=== PATIENT | female | born 1955 | race Caucasian/White ===

== ENCOUNTER 2016-09-21 15:59 | Emergency (ER) | payer MEDICARE ==
[2015-04-25 13:13] VITALS: BMI 56.5
[~2016-09-21 15:59] MED LIST: CELEBREX200 MG PO; CRESTOR40 MG PO; DIOVAN40 MG PO; GLUCOPHAGE500 MG PO; K-PHOS ORIGINA500 MG PO; LEVAQUIN500 MG PO; PAMELOR10 MG PO; PERCOCET 10/3251 TA1 PO; SYNTHROID25 MCG PO
[2016-09-21 18:44] LABS: APPEARANCE CLEAR (CLEAR); BILIRUBIN NEGATIVE (NEGATIVE); COLOR YELLOW (YELLOW); GLUCOSE NEGATIVE (NEGATIVE); KETONE NEGATIVE (NEGATIVE); LEUKOCYTE ESTERASE NEGATIVE (NEGATIVE); NITRITE NEGATIVE (NEGATIVE); PROTEIN 1+ mg/dL (NEGATIVE); UROBILINOGEN NORMAL (NORMAL)
== END 2016-09-21 20:30 | disposition home or self-care (01) ==
LOC: D.ER 15:59
PROVIDERS: Emergency Medicine
DX: S39.012A Strain of muscle, fascia and tendon of lower back, initial encounter (principal); X58.XXXA Exposure to other specified factors, initial encounter; Y93.89 Activity, other specified; Y92.89 Other specified places as the place of occurrence of the external cause; E11.9 Type 2 diabetes mellitus without complications; I10 Essential (primary) hypertension; E66.9 Obesity, unspecified; F17.200 Nicotine dependence, unspecified, uncomplicated

== ENCOUNTER → 2016-11-10 09:47 | Outpatient (CLI) | payer MEDICARE ==
[2015-04-25 13:13] VITALS: BMI 56.5
== END | disposition home or self-care (01) ==
LOC: D.MAMMO 09:47
DX: Z12.31 Encounter for screening mammogram for malignant neoplasm of breast (principal)

== ENCOUNTER → 2016-12-14 18:00 | Outpatient (CLI) | payer MEDICARE ==
[2015-04-25 13:13] VITALS: BMI 56.5
[~2016-12-14 18:00] MED LIST changes: +AMPICILLIN TRI500 MG PO; +EXFORGE 5-160 M1 TAB PO
== END | disposition home or self-care (01) ==
LOC: D.MAMMO 11-29 15:00
DX: R92.8 Other abnormal and inconclusive findings on diagnostic imaging of breast (principal)

== ENCOUNTER 2017-01-01 23:45 | Inpatient (IN) | payer MEDICARE ==
[~2017-01-01 23:45] MED LIST changes: -AMPICILLIN TRI500 MG PO; -EXFORGE 5-160 M1 TAB PO
[2017-01-02 00:17] LABS: HEMATOCRIT 36.7 % (36.0-48.0); HEMOGLOBIN 11.8 g/dL (12-16); LYMPHOCYTES 15.9 % (15-50); MCH 28.9 pg (26.0-34.0); MCHC 32.2 g/dL (31.0-37.0); MCV 89.7 fL (80.0-100.0); MEAN PLATELET VOLUME 9.8 fL (7.4-10.4); NEUTROPHILS 79.7 % (40-80); RBC 4.09 10x6/uL (4.00-5.40); RDW 14.7 % (11.5-14.5); WBC 11.3 10x3/uL (4.8-10.8)
[2017-01-02 00:23] LABS: PLATELET COUNT 208 10x3/uL (130-400)
[2017-01-02 00:29] LABS: ALBUMIN 2.6 g/dL (3.4-5.0); ANION GAP 11.8 mmol/L (8-16); BILIRUBIN - TOTAL 0.3 mg/dL (0.2-1.3); CALCIUM 9.4 mg/dL (8.5-10.1); CARBON DIOXIDE 27.8 mmol/L (21.0-32.0); CREATININE - SERUM 1.2 mg/dL (0.6-1.3); POTASSIUM - SERUM 3.6 mmol/L (3.5-5.1); PROTEIN - SERUM 7.3 g/dL (6.4-8.2)
[2017-01-02 00:49] LABS: MAGNESIUM - SERUM 1.8 mg/dL (1.8-2.4)
--- NOTE | 2017-01-02 01:08 | NUR ---
RCVD REPORT FROM GINA IN THE ER. AWAITING PT ARRIVAL.
--- NOTE | 2017-01-02 01:14 | NUR ---
PT ARRIVED ON FLOOR BY PERSONAL POWER SCOOTER ASSISTED X1.
[2017-01-02 02:24] VITALS: BP 180/88; BMI 45.3
--- NOTE | 2017-01-02 02:57 | NUR ---
PTS BP ON ADMISSION WAS 190/88. WENT TO THE PT TO ASK HER WHAT HER NORMAL IS AND IF SHE TAKES HER BP PILL AT NIGHT. SHE STATED THAT WHEN THE BP WAS TAKEN EARLIER SHE WAS VERY NERVOUS AND THAT NORMALL SHE IS ABOUT 160/70. SHE STATED THAT SHE NEVER TAKES HER BP PILL AT NIGHT. PT STATED SHE WAS FEELING MUCH LESS NERVOUS NOW AND I RETOOK HER BP AND IT WAS 169/77. PT STATED THIS IS ABOUT NORMAL FOR HER. STATES THAT SHE WANTS TO TAKE HER BP PILL IN THE MORNING SHE USUALLY DOES. WILL CTM.
[2017-01-02 04:00] VITALS: BP 154/64
--- NOTE | 2017-01-02 04:04 | NUR ---
PT STATES THAT SHE USES A CPAP AT HOME. STATES THAT SHE DOESN'T WANT ONE TONIGHT AND THAT SHE WILL HAVE A FAMLIY MEMBER BRING HER OWN PERSONAL ONE FROM HOME TOMORROW. BREATHING EVEN AND UNLABORED.
--- NOTE | 2017-01-02 07:15 | NUR ---
RECEIVED REPORT. ASSUMED CARE OF PATIENT. PATIENT RESTING IN BED WITH EYES OPEN. RESP EVEN AND UNLABORED. CELLULITIS NOTED TO ENIRE RIGHT LEG AND LOWER LEFT LEG. INFORMED PATIENT OF THE NEED FOR URINE SAMPLE. CALL LIGHT WITHIN REACH. NO DISTRESS.
[2017-01-02 08:00] VITALS: BP 135/66
--- NOTE | 2017-01-02 08:51 | NUR ---
MEDICATED FOR PAIN AT THIS TIME. WAITING FOR PHARMACY TO BRING UNASYN TO FLOOR FOR ADMINISTRATION.
--- NOTE | 2017-01-02 09:23 | NUR ---
STILL AWAITING ANTIBIOTICS TO BE BROUGHT UP FROM PHARMACY.
[2017-01-02 11:02] LABS: APPEARANCE CLEAR (CLEAR); BILIRUBIN NEGATIVE (NEGATIVE); COLOR YELLOW (YELLOW); GLUCOSE NEGATIVE (NEGATIVE); KETONE NEGATIVE (NEGATIVE); NITRITE NEGATIVE (NEGATIVE); PROTEIN 3+ mg/dL (NEGATIVE); SPECIFIC GRAVITY 1.015 (1.005-1.020); UROBILINOGEN NORMAL (NORMAL)
[2017-01-02 11:03] LABS: BACTERIA FEW /hpf (NONE SEEN); EPITHELIAL CELLS 0-5 /hpf (0-5); RED CELLS - URINE 0-5 /hpf (0-5); WHITE CELLS - URINE 0-5 /hpf (0-5)
[2017-01-02 12:00] VITALS: BP 131/58
--- NOTE | 2017-01-02 15:27 | NUR ---
20 GAUGE IV REMOVED FROM RIGHT AC IV WAS INFILTRATED. CATHETER TIP INTACT. NO BLEEDING FROM STIE. 2X2 applied and SECURED WITH TAPE. 20 GAUGE IV PLACED TO LEFT WRIST X 1 STICK. GOOD BLOOD RETURN, EASY FLUSH. TAPED, DATED AND SECURED. TOLERATED IV PLACEMENT WELL. IV FLUIDS INFUSING ORDERED. NO DISTRESS.
[2017-01-02 16:00] VITALS: BP 159/77
--- NOTE | 2017-01-02 17:06 | NUR ---
FSBS 110. NO INSULIN COVERAGE REQUIRED PER SLIDING SCALE.
--- NOTE | 2017-01-02 18:29 | NUR ---
REDNESS TO BILATERAL LOWER EXTREMITIES NOTED TO BE SLIGHTLY FADDING TO RED PINK COLOR AFTER RECEIVING 2 DOSES OF ABX. LEGS ARE MARKED. NO DISTRESS.
--- NOTE | 2017-01-02 19:16 | NUR ---
MEDICATED FOR PAIN AT THIS TIME. NO DISTRESS.
[2017-01-02 20:49] VITALS: BP 183/88
[2017-01-03 01:18] VITALS: BP 175/75
[2017-01-03 05:07] LABS: BASOPHILS 0.3 % (0-2); EOSINOPHILS 2.1 % (0-7); HEMOGLOBIN 11.3 g/dL (12-16); LYMPHOCYTES 12.5 % (15-50); MCHC 31.4 g/dL (31.0-37.0); MEAN PLATELET VOLUME 9.6 fL (7.4-10.4); MONOCYTES 5.1 % (2-11); PLATELET COUNT 189 10x3/uL (130-400); RBC 3.89 10x6/uL (4.00-5.40); RDW 15.5 % (11.5-14.5); WBC 10.1 10x3/uL (4.8-10.8)
[2017-01-03 05:09] LABS: MCV 92.5 fL (80.0-100.0)
[2017-01-03 05:25] VITALS: BP 178/81
[2017-01-03 06:29] LABS: ALBUMIN 2.3 g/dL (3.4-5.0); ALKALINE PHOSPHATASE 114 U/L (46-116); ALT (SGPT) 47 U/L (10-68); CALCIUM 8.9 mg/dL (8.5-10.1); CARBON DIOXIDE 26.7 mmol/L (21.0-32.0); CHLORIDE - SERUM 106 mmol/L (98-107); GLUCOSE 157 mg/dL (74-106); POTASSIUM - SERUM 3.8 mmol/L (3.5-5.1); PROTEIN - SERUM 6.7 g/dL (6.4-8.2); SODIUM 141 mmol/L (136-145)
[2017-01-03 06:32] LABS: CALC OSMOLALITY 284 mosm/kg (275-300); CREATININE - SERUM 0.8 mg/dL (0.6-1.3); UREA NITROGEN 15 mg/dL (7-18); eGFR NON AFRICAN AMERICAN 77 mL/min (90-120)
--- NOTE | 2017-01-03 07:30 | NUR ---
AM ROUNDS- PT IN BED, C/O OF SANJAY MAN PT SHE IT WAS STILL NOT TIME FOR HER TO HAVE ZOFRAN THAT I WOULD BE ABLE TO GIVE TO HER AROUND 0900. PT DENIES ANY OTHER NEEDS AT THIS TIME. CALL LIGHT IN REACH, NAD NOTED, WILL CONTINUE TO MONITOR.
[2017-01-03 08:00] VITALS: BP 173/77
--- NOTE | 2017-01-03 09:07 | NUR ---
AM MEDS GIVEN PT C/O NAUSEA 4MG OF ZOFRAN GIVEN AT THIS TIME. PT WAS NOT ABLE TO EAT BREAKFAST, DENIES ANY NEEDS AT THIS TIME. CALL LIGHT IN REACH, NAD NOTED, WILL CONTINUE TO MONITOR.
--- NOTE | 2017-01-03 11:16 | NUR ---
IVPB AMPICILLIN HUNG AT THIS TIME. BLOOD SUGAR OF 125 NO COVERAGE NEEDED PER S/S. PROPERTIES SUPERVISOR AT BEDSIDE TO GET VITALS. PT DENIES ANY NEEDS AT THIS TIME, CALL LIGHT IN REACH, NAD NOTED, WILL CONTINUE TO MONITOR.
[2017-01-03 12:00] VITALS: BP 181/84
[2017-01-03 12:33] VITALS: BMI 45.2
[2017-01-03 16:00] VITALS: BP 176/89
--- NOTE | 2017-01-03 16:15 | NUR ---
BLOOD SUGAR OF 115, NO COVERAGE NEEDED PER S/S. PT DENIES ANY NEEDS AT THIS TIME. CALL LIGHT IN REACH, NAD NOTED.
[2017-01-03 21:02] VITALS: BP 203/90
[2017-01-04 00:30] VITALS: BP 197/87
[2017-01-04 04:15] LABS: BASOPHILS 0.3 % (0-2); EOSINOPHILS 0.7 % (0-7); HEMATOCRIT 36.2 % (36.0-48.0); HEMOGLOBIN 11.5 g/dL (12-16); IMMATURE GRANULOCYTES 5.5 % (0-5); LYMPHOCYTES 11.1 % (15-50); MCH 29.2 pg (26.0-34.0); MCHC 31.8 g/dL (31.0-37.0); MCV 91.9 fL (80.0-100.0); MEAN PLATELET VOLUME 10.5 fL (7.4-10.4); MONOCYTES 6.7 % (2-11); NEUTROPHILS 75.7 % (40-80); RBC 3.94 10x6/uL (4.00-5.40)
[2017-01-04 04:17] LABS: PLATELET COUNT 246 10x3/uL (130-400); WBC 14.1 10x3/uL (4.8-10.8)
[2017-01-04 04:40] LABS: ALBUMIN 2.3 g/dL (3.4-5.0); ALKALINE PHOSPHATASE 103 U/L (46-116); ALT (SGPT) 34 U/L (10-68); CALC OSMOLALITY 281 mosm/kg (275-300); CALCIUM 9.1 mg/dL (8.5-10.1); CARBON DIOXIDE 27.6 mmol/L (21.0-32.0); CHLORIDE - SERUM 105 mmol/L (98-107); CREATININE - SERUM 0.8 mg/dL (0.6-1.3); GLUCOSE 128 mg/dL (74-106); POTASSIUM - SERUM 3.4 mmol/L (3.5-5.1); PROTEIN - SERUM 6.8 g/dL (6.4-8.2); SODIUM 141 mmol/L (136-145); UREA NITROGEN 11 mg/dL (7-18); eGFR NON AFRICAN AMERICAN 77 mL/min (90-120)
[2017-01-04 06:03] VITALS: BP 189/87
[2017-01-04] MEDS ORDERED: AMPICILLIN TRI500 MG PO (06:35)
[2017-01-04] MEDS ORDERED: EXFORGE 5-160 M1 TAB PO (06:35)
--- NOTE | 2017-01-04 07:10 | NUR ---
RECEIVED REPORT. ASSUMED CARE OF PATIENT. PATIENT ALERT/AWAKE. SITTING UP IN BED. CALL LIGHT WITHIN REACH. PATIENT REPORTS THE MD STATED SHE WOULD GET TO GO HOME TODAY. CELLULITIS TO BILATERAL LOWER EXTREMITIES IS RESOLVING. NO DISTRESS.
[2017-01-04 08:07] VITALS: BP 178/83
--- NOTE | 2017-01-04 09:39 | NUR ---
SPOKE WITH PATIENT ABOUT TAKING A SHOWER THIS MORNING PRIOR TO DISCHARGE. PATIENT REFUSED TO TAKE A SHOWER
--- NOTE | 2017-01-04 10:41 | NUR ---
Patient Name: NELSON WANG Admission Status: ER Accout number: [id number] Admission Date: 01-02-2017 : 1955 Admission Diagnosis: Attending: José Leal Current LOS: 2 Anticipated DC Date: 01-04-2017 Planned Disposition: Home Primary Insurance: MEDICARE A & B Discharge Planning Comments: * Is the patient Alert and Oriented? Yes 0 * How many steps to enter\exit or inside your home? RAMP 0 * PCP DR. LEAL 0 * Pharmacy [facility] 0 * Preadmission Environment Home with Family 0 * ADLs Independent 0 * Equipment CPAP Other 0 * Other Equipment ELECTRIC SCOOTER [employer] MEDICAL EQUIPMENT PROVIDER PREFERENCE 0 * List name and contact numbers for known caregivers / representatives who currently or will assist patient after discharge: MARIIA MEDINA, SPOUSE, 0 * Community resources currently utilized None 0 * Please name any agencies selected above. NONE 0 * Additional services required to return to the preadmission environment? No 0 * Can the patient safely return to the preadmission environment? Yes 0 * Has this patient been hospitalized within the prior 30 days at any hospital? No 0 CM MET WITH PT IN ROOM TO DISCUSS DISCHARGE PLANNING AND NEEDS. PT REPORTS LIVING AT HOME INDEPENDENTLY WITH HER SPOUSE. PT HAS CPAP AND ELECTRIC SCOOTER FROM [employer]. PT HAS NO OUTSIDE SERVICES ASSISTING IN THE HOME. CM DISCUSSED AVAILABILITY OF HOME HEALTH, REHAB SERVICES AND MEDICAL EQUIPMENT. PT DENIES DISCHARGE NEEDS, REPORTS HER SPOUSE OR NEIGHBOR WILL PICK HER UP FOR DISCHARGE HOME. IMPORTANT MESSAGE FROM MEDICARE PROVIDED AND EXPLAINED. Taper Operator: Misael Barraza
--- NOTE | 2017-01-04 11:17 | NUR ---
1045 20 GAUGE IV REMOVED FROM LEFT WRIST. CATHETER TIP INTACT. NO BLEEDING FROM SITE. TOLERATED IV REMOVAL WELL. 1050 DISCHARE INSTRUCTIONS PROVIDED. VERBALIZED UNDERSTANDING OF ALL INSTURCTIONS PROVIDED. NO DISTRESS. WAITING FOR FAMILY TO COME AND PICK HER UP AT THIS TIME.
--- NOTE | 2017-01-04 11:42 | NUR ---
PATIENT FAMILY HERE TO RETRIEVE HER AND TAKE HER HOME. PATIENT USES ELECTRIC MOTORSCOOTER. NO DISTRESS UPON LEAVING UNIT. PATIENT LEFT UNIT WITH ALL PERSONAL BELONGINGS AT THIS TIME. NO DISTRESS.
== END 2017-01-04 11:46 | disposition home or self-care (01) | DRG 603 ==
LOC: D.ER 23:45 → D.M2 01-02 01:12
PROVIDERS: Emergency Medicine; Family Medicine; ADMIT Family Medicine
DX: L03.116 Cellulitis of left lower limb (principal); L03.115 Cellulitis of right lower limb; J45.909 Unspecified asthma, uncomplicated; E11.9 Type 2 diabetes mellitus without complications; G47.33 Obstructive sleep apnea (adult) (pediatric); E03.9 Hypothyroidism, unspecified; I87.2 Venous insufficiency (chronic) (peripheral); Z72.0 Tobacco use